=== PATIENT | female | born 1955 | race Caucasian/White ===

== ENCOUNTER 2016-12-17 06:19 | Day surgery (SDC) | payer MEDICAID ==
[~2016-12-17 06:19] MED LIST: Lactated Ringers 1,000 ML IV SCH
[2016-12-17] MEDS ORDERED: Lactated Ringers 1,000 ML IV SCH (07:00)
[2016-12-17] MEDS ORDERED: Midazolam 1 MG/ML 2 ML SDV ONE (07:20)
[2016-12-17] MEDS ORDERED: fentaNYL 100 MCG/2 ML SDV ONE (07:20)
[2016-12-17] MEDS ORDERED: Ondansetron 4 MG/2 ML SDV ONE (07:20)
[2016-12-17] MEDS ORDERED: Propofol 200 MG/20 ML SDV ONE (07:20)
--- NOTE | 2016-12-17 10:26 | OR ---
DATE OF PROCEDURE: 12/17/2016 PREOPERATIVE DIAGNOSIS: Colon cancer screening. POSTOPERATIVE DIAGNOSIS: Hemorrhoids. PROCEDURE: Colonoscopy to the cecum. SURGEON: Bk Azevedo MD. ANESTHESIA: IV anesthesia with monitored anesthesia care. INDICATION: This 61-year-old white female is referred for a colonoscopy for colon cancer screening. Her last colonoscopic exam she says was 10 years ago. I counseled her for the procedure including risks and alternatives, and she gave her informed consent to proceed. DESCRIPTION OF PROCEDURE: The patient was placed in the left lateral decubitus position. IV anesthesia was administered by the Anesthesia Service. Time-out was held. A rectal exam was performed, which was unremarkable. The flexible video Olympus colonoscope was introduced through her anus, up her rectum, and out her colon all the way to the cecum. Once the cecum was reached, the scope was slowly withdrawn, examining the mucosa throughout. No mucosal abnormalities were noted until we retroflexed the scope. Here, we saw some what appeared to be old prominent hemorrhoids. The scope was straightened and removed. She tolerated the procedure well. Bk Azevedo MD /[id number]
== END 2016-12-17 09:09 | disposition home or self-care (01) ==
LOC: JP.SDS 06:19
PROVIDERS: ATTEND Surgery
DX: Z12.11 Encounter for screening for malignant neoplasm of colon (principal); K64.9 Unspecified hemorrhoids
CPT/HCPCS: 45378; J2250; J2405; J2704; J3010; J7120

== ENCOUNTER 2024-06-11 16:17 | Emergency (ER) | payer MEDICARE ==
[2024-06-11] MEDS: Diphtheria,Pertussis(Acell),Tetanus Vaccine 0.5 ML Syringe IM ONE (16:56)
[2024-06-11] MEDS: Bacitracin Oint 1 GM U/D Packet TOP ONE (16:57)
== END 2024-06-11 17:04 | disposition home or self-care (01) ==
LOC: JP.ED 16:17
DX: S60.450A Superficial foreign body of right index finger, initial encounter (principal); Z23 Encounter for immunization; I10 Essential (primary) hypertension; E78.00 Pure hypercholesterolemia, unspecified; Z88.8 Allergy status to other drugs, medicaments and biological substances; Z79.899 Other long term (current) drug therapy; Z90.710 Acquired absence of both cervix and uterus; W45.8XXA Other foreign body or object entering through skin, initial encounter
CPT/HCPCS: 90471; 90715; 99282-25; 99283